=== PATIENT | female | born 1960 | race Caucasian/White ===

== ENCOUNTER 2016-09-03 08:22 | Emergency (ER) | payer BC ==
[2016-09-03 08:34] VITALS: BP 138/98
[2016-09-03] MEDS ORDERED: Tetan/Diph/Pertus SYR(Tdap)* 0.5 ML SYR(BOOSTRIX) use SYR IM ONE (08:41)
[2016-09-03] MEDS ORDERED: Lidocaine 1% MPF* 2 ML VIAL ONE (09:44)
--- NOTE | 2016-09-03 09:50 | RAD ---
INDICATION: Head injury. COMPARISON: There are no prior studies available for comparison. TECHNIQUE: Contiguous axial sections of the brain were obtained from the skull base to the vertex without contrast. FINDINGS: The ventricles, cisterns and sulci are within normal limits. No significant focal abnormality or mass effect is seen. There is no evidence for hemorrhage. No fracture is seen. The visualized portion of the paranasal sinuses and mastoid air cells appear clear. IMPRESSION: NO EVIDENCE FOR ACUTE INTRACRANIAL ABNORMALITY.
--- NOTE | 2016-09-03 10:32 | UC ---
Agustin Cooley Karl, scribed for Shaista Ruiz DO on 09/03/16 at 0847 . Laceration HPI - HPI Summary HPI Summary: Pt is a 56 y/o female that presents to [facility] c/o a laceration to her forehead above her right eye that occurred at approx 22:00 last night. Pt reported that she was chasing her dog down her driveway and slipped and hit her head on the pavement. Pt denied LOC, SALGUERO, nausea, vomiting, changes in visions or hearing, loss of balance, dizziness, fatigue, mood changes, photophobia, and any other health problems. Hx: depression. - History Of Current Complaint Chief Complaint: UCLaceration Stated Complaint: FELL-FOREHEAD LACERATION Time Seen by Provider: 09/03/16 08:35 Hx Obtained From: Patient Laceration Location: Head - above right eye Mechanism Of Injury: Blunt Trauma Onset/Duration: Sudden Onset, Lasting Hours, Still Present Severity: Mild Pain Intensity: 0 - Pain Pain Scale Used: 0-10 Numeric Aggravating Factors: Nothing - Allergies/Home Medications Allergies/Adverse Reactions: Allergies Allergy/AdvReac Type Severity Reaction Status Date / Time No Known Allergies Allergy Verified 09/03/16 08:28 Home Medications: Home Medications Estradiol TAB(NF) 1 tab PO DAILY 09/03/16 [History Confirmed 09/03/16] Progesterone Micronized [Prometrium] 1 cap PO DAILY 09/03/16 [History Confirmed 09/03/16] buPROPion TAB* [Wellbutrin TAB*] 150 mg PO DAILY 09/03/16 [History Confirmed ] PMH/Surg Hx/FS Hx/Imm Hx Previously Healthy: Yes Psychological History Of: Reports: Anxiety, Depression Cancer History Of: Denies: Breast Cancer - Surgical History Surgical History: None - Family History Known Family History: Negative: Cardiac Disease, Hypertension, Diabetes - Social History Occupation: Employed Full-time Alcohol Use: Daily Substance Use Type: None Smoking Status (MU): Current Some Day Smoker Type: Cigarettes Amount Used/How Often: 1 pack/2-3 weeks Cessation Counseling: Patient Advised to Stop Review of Systems Constitutional: Negative Skin: Other - laceration on forehead above right eye Eyes: Negative ENT: Negative Respiratory: Negative Cardiovascular: Negative Gastrointestinal: Negative Genitourinary: Negative Motor: Negative Neurovascular: Negative Musculoskeletal: Negative Neurological: Negative Psychological: Negative All Other Systems Reviewed And Are Negative: Yes Physical Exam Triage Information Reviewed: Yes Appearance: Well-Appearing, No Pain Distress, Well-Nourished Vital Signs: Initial Vital Signs Temp 97.6 F 09/03/16 08:30 Pulse 85 09/03/16 08:30 Resp 16 09/03/16 08:30 BP 138/98 09/03/16 08:30 Pulse Ox 97 09/03/16 08:30 Vital Signs Reviewed: Yes Eyes: Positive: Conjunctiva Clear. Negative: Discharge ENT: Positive: Hearing grossly normal. Negative: Muffled/hoarse voice Neck exam: Normal Neck: Positive: Supple Respiratory: Positive: Lungs clear, Normal breath sounds, No respiratory distress, No accessory muscle use Cardiovascular: Positive: RRR, No Murmur Musculoskeletal Exam: Normal Neurological: Positive: Alert, Muscle Tone Normal Psychological Exam: Normal Psychological: Positive: Age Appropriate Behavior Skin Exam: Other - 3cm laceration to the right forehead/scientology Laceration Repair - Laceration Repair 1 Description: Linear Laceration Size After Repair: Length (cm) - 3 Modified For Repair: No Type Injection: Local Anesthesia Used: 1.0% Lido Cleansing Completed Via Routine Prep: Yes Irrigation With Pressure Irrigation Device: Yes Closure Material: Sutures - 8 nylon Closure Method: Single Layer Suture Of: Skin Suture Type: Nylon Diagnostics - Laboratory Diagnostic Studies Completed/Ordered: CT Brain: (Radiologist) - FINDINGS: The ventricles, cisterns and sulci are within normal limits. No significant focal abnormality or mass effect is seen. There is no evidence for hemorrhage. No fracture is seen. The visualized portion of the paranasal sinuses and mastoid air cells appear clear. IMPRESSION: NO EVIDENCE FOR ACUTE INTRACRANIAL ABNORMALITY. Laceration Course/Dx - Differential Dx - Laceration/Wound Differental Diagnoses: Abrasion, Fracture, Laceration Provider Diagnoses: laceration repair Discharge - Discharge Plan Condition: Stable Disposition: HOME Patient Education Materials: Facial Fracture (ED) Referrals: Kai Rosales MD [Primary Care Provider] - Glenn Reinoso MD [Medical Doctor] - If Needed () Additional Instructions: CEPHALEXIN: The antibiotic you've been prescribed is a member of the cephalosporin class. This type of antibiotic covers a wide variety of infections, including those of the skin, lungs, and urinary tract. It's useful for staph infections. This antibiotic is slightly similar to the penicillin family. In rare cases , a person who is allergic to penicillin will also be allergic to this medication. If you have had a severe allergic reaction to penicillin, and have not taken this antibiotic since that time, notify your doctor. Antibiotics which cover many germs ("broad spectrum" antibiotics) are more likely to cause diarrhea or "yeast" infections. Women prone to vaginal yeast problems may suffer an attack after taking this antibiotic. In infants, oral thrush (white spots "stuck" on the cheek) or yeast diaper rash may result. See your doctor if these problems occur. Call at once if you develop itching, hives , shortness of breath, or lightheadedness. ANY TIME YOU TAKE AN ANTIBIOTIC, IT IS IMPORTANT TO REPLENISH THE BODY'S BALANCE OF "GOOD" BACTERIA BY EATING HIGH QUALITY CULTURED FOOD SUCH YOGURT, SAURKRAUT OR ERIN CHI AND/OR TAKING A PROBIOTIC SUPPLEMENT. FOLLOW UP RETURN HERE FOR SURTURE REMOVAL IN 5 DAYS. Images Head: 1 - 4cm laceration The documentation as recorded by the Agustin pitts Karl accurately reflects the service I personally performed and the decisions made by me, Shaista Ruiz DO.
== END 2016-09-03 11:23 | disposition home or self-care (01) ==
LOC: UCEAST 08:22
DX: S01.81XA Laceration without foreign body of other part of head, initial encounter (principal); W01.198A Fall on same level from slipping, tripping and stumbling with subsequent striking against other object, initial encounter; Y93.K1 Activity, walking an animal; Y92.014 Private driveway to single-family (private) house as the place of occurrence of the external cause; Z23 Encounter for immunization; F17.210 Nicotine dependence, cigarettes, uncomplicated
CPT/HCPCS: 12013; 12031; 36415; 70450; 80074; 86703; 90471; 90715; 99212; G0463

== ENCOUNTER 2016-09-09 10:50 | Emergency (ER) | payer BC ==
[2016-09-09 11:25] VITALS: BP 132/78
--- NOTE | 2016-09-09 11:40 | UC ---
HPI Wound/Suture Re-check - HPI Summary HPI Summary: 56 year old woman here for suture removal. She had 8 simple interrupted sutures placed 6 days ago following a fall. The patient states she was cautious and rested as the doctor advised. She has not had a headache, irritability, nausea, vomiting or trouble sleeping. She did try to return to work on however had some trouble concentrating and went home. She has returned to reading and most of her normal activities now without difficulty - History Of Current Complaint Chief Complaint: UCSkin Stated Complaint: SUTURE REMOVAL Time Seen by Provider: 09/09/16 11:28 Hx Obtained From: Patient Onset/Duration: Sudden Onset, Lasting Days - 6, Still Present - but has improved Severity: Mild Pain Scale Used: 0-10 Numeric - 0 - Allergies/Home Medications Allergies/Adverse Reactions: Allergies Allergy/AdvReac Type Severity Reaction Status Date / Time No Known Allergies Allergy Verified 09/03/16 08:28 PMH/Surg Hx/FS Hx/Imm Hx Previously Healthy: Yes Endocrine History Of: Denies: Diabetes Cardiovascular History Of: Denies: Cardiac Disorders Respiratory History Of: Denies: Asthma Psychological History Of: Reports: Anxiety, Depression Cancer History Of: Denies: Breast Cancer - Surgical History Surgical History: None - Family History Known Family History: Negative: Cardiac Disease, Hypertension, Diabetes - Social History Occupation: Employed Full-time Lives: With Family Alcohol Use: Daily Substance Use Type: None Smoking Status (MU): Current Some Day Smoker Type: Cigarettes Amount Used/How Often: 1 pack/2-3 weeks Cessation Counseling: Patient Advised to Stop Review of Systems Constitutional: Negative Skin: Other - 3 cm well healing laceration to the right forehead. needs 8 stitches removed Eyes: Negative ENT: Negative Respiratory: Negative Cardiovascular: Negative Gastrointestinal: Negative Genitourinary: Negative Motor: Negative Neurovascular: Negative Musculoskeletal: Negative Neurological: Negative Psychological: Negative All Other Systems Reviewed And Are Negative: Yes Physical Exam Triage Information Reviewed: Yes Appearance: Well-Appearing, No Pain Distress, Well-Nourished Vital Signs: Initial Vital Signs Temp 98.1 F 09/09/16 11:16 Pulse 83 09/09/16 11:16 Resp 16 09/09/16 11:16 BP 132/78 09/09/16 11:16 Pulse Ox 99 09/09/16 11:16 Vital Signs Reviewed: Yes Eyes: Positive: Conjunctiva Clear. Negative: Discharge - PERRLA, good ocular movements ENT: Positive: Pharynx normal, Other: - right orbit without step offs or deformities noted Neck: Positive: Supple, Nontender - no midline cervical tenderness Respiratory: Positive: Lungs clear, Normal breath sounds Cardiovascular: Positive: RRR, No Murmur Musculoskeletal: Positive: Strength Intact, ROM Intact Neurological: Positive: Alert, Muscle Tone Normal Psychological: Positive: Age Appropriate Behavior - pleasant and cooperative Skin: Positive: rashes, Other - 3 cm laceration, edges well approximated with 8 simple interrupted sutures intact. No erythema or drainage noted. Faint yellow , resolving bruise, noted distal to laceration Course/Dx - Course Course Of Treatment: area cleansed with alcohol prep. 8 stitches removed. antibiotic ointment applied - Differential Dx - Laceration/Wound Differential Diagnoses: Suture Removal Provider Diagnoses: Well healing laceration to right forehead. 8 stitches removed Discharge - Discharge Plan Condition: Stable Disposition: HOME Patient Education Materials: Stitches Removal (ED) Additional Instructions: You may slowly resume your normal daily activities Continue to apply antibiotic ointment twice daily for 5 more days
== END 2016-09-09 11:52 | disposition home or self-care (01) ==
LOC: UCEAST 10:50
DX: Z48.02 Encounter for removal of sutures (principal); Z72.0 Tobacco use
CPT/HCPCS: 99211; G0463

== ENCOUNTER 2018-08-20 07:00 | Day surgery (SDC) | payer BC ==
[~2018-08-20 07:00] MED LIST: Acetaminophen TAB* 325 MG PO PRN
[2018-08-20] MEDS ORDERED: fentaNYL* 50 MCG/ML 2 ML VIAL (100 MCG VIAL) ONE (08:25)
[2018-08-20] MEDS ORDERED: Midazolam* 1 MG/ML 5 ML VIAL (5 MG) ONE (08:25)
[2018-08-20 09:38] VITALS: BP 125/94
[2018-08-20] MEDS ORDERED: Buffered Lidocaine 0.9% SYRIN* 5 ML/SYR SYRINGE INTRADERM ONE (11:45)
--- NOTE | 2018-08-20 12:01 | OP ---
OPERATIVE NOTE: DATE OF OPERATION: 08/20/18 DATE OF : 60 SURGEON: Favian Chavez M.D. PREOPERATIVE DIAGNOSIS: Cataract, left eye. POSTOPERATIVE DIAGNOSIS: Cataract, left eye. OPERATIVE PROCEDURE: Extracapsular cataract extraction with intraocular lens implant left eye. PROCEDURE: The patient was brought to the operating room after being given 1/2% Alcaine with epineph rine drops in the preoperative area. The eye was prepped and draped in the usual sterile fashion. S terile drape and eyelid speculum were placed. Again, topical 1/2% Alcaine with epinephrine was given . A paracentesis incision was made at the 3 o'clock position with the No.75 blade. Clear cornea inc ision 2.2 x 2.2-mm was created at the 6 o'clock position starting at the anterior limbus using the 2. 2-mm keratome. The anterior chamber was irrigated with 0.4 mL of 1% non-preservative intracameral li docaine and filled with DisCoVisc. A capsulorrhexis was completed using the cystotome and the Utrata forceps. Hydrodissection was performed with balanced salt solution. The lens nucleus was removed wi th the Phacoemulsification handpiece without incident. Cortex was removed with the irrigation-aspira tion handpiece. The capsular bag was re-inflated using DisCoVisc and an SN6AT4 of 14.5 implant was i nserted with the shooter, oriented to the 97-degree meridian. Horizontal reference sweet were made w ith the patient in the seated position in the preoperative area. The irrigation-aspiration handpiece was used to remove all residual DisCoVisc. The eye was refilled with balanced salt solution and the wound checked and found to be watertight. Topical Maxitrol drops were given. [id number]/[facility] #: [id number]
[2018-08-20] MEDS ORDERED: Lidocaine 1%* 5 ML VIAL ONE (12:42)
[2018-08-20] MEDS ORDERED: acetaZOLAMIDE TAB* 250 MG ONE (12:42)
[2018-08-20] MEDS ORDERED: Lidocaine 2% EPI 1:200000 MPF*10-20 ML VIAL ONE (12:42)
[2018-08-20] MEDS ORDERED: Cyclopentolate 1% OPTH.SOL* 2 ML BTL ONE (12:42)
[2018-08-20] MEDS ORDERED: Phenylephrine 2.5% OPTH.SOL* 2 ML BTL ONE (12:42)
[2018-08-20] MEDS ORDERED: Povidone Iodine 5% OPTH* 30 ML BTL ONE (12:42)
[2018-08-20] MEDS ORDERED: Neomycin/Polymy/Dex OPTH.SUSP* MAXITROL 0.1% 5 ML ONE (12:42)
[2018-08-20] MEDS ORDERED: Ketorolac 0.5% OPHTH (NF) 0.5 % 5 ML BTL ONE (12:42)
[2018-08-20] MEDS ORDERED: Proparacaine 0.5% OPHTH.SOL* 15 ML BTL ONE (12:49)
== END 2018-08-20 09:43 | disposition home or self-care (01) ==
LOC: OREAST 07:00
PROVIDERS: ATTEND Specialist
DX: H25.812 Combined forms of age-related cataract, left eye (principal); F41.8 Other specified anxiety disorders
CPT/HCPCS: A9270-GY; J2250; J3010; V2787

== ENCOUNTER 2018-10-08 08:16 | Day surgery (SDC) | payer BC ==
[~2018-10-08 08:16] MED LIST changes: +Buffered Lidocaine 1% SYRIN* 1 ML/SYRINGE INTRADERM ONE
[2018-10-08] MEDS ORDERED: Cyclopentolate 1% OPTH.SOL* 2 ML BTL ONE (09:19)
[2018-10-08] MEDS ORDERED: Lidocaine 1%* 5 ML VIAL ONE (09:19)
[2018-10-08] MEDS ORDERED: Povidone Iodine 5% OPTH* 30 ML BTL ONE (09:19)
[2018-10-08] MEDS ORDERED: Phenylephrine 2.5% OPTH.SOL* 2 ML BTL ONE (09:19)
[2018-10-08] MEDS ORDERED: acetaZOLAMIDE TAB* 250 MG ONE (09:19)
[2018-10-08] MEDS ORDERED: Lidocaine 2% EPI 1:200000 MPF*10-20 ML VIAL ONE (09:19)
[2018-10-08] MEDS ORDERED: Neomycin/Polymy/Dex OPTH.SUSP* MAXITROL 0.1% 5 ML ONE (09:19)
[2018-10-08] MEDS ORDERED: Ketorolac 0.5% OPHTH (NF) 0.5 % 5 ML BTL ONE (09:19)
[2018-10-08] MEDS ORDERED: Proparacaine 0.5% OPHTH.SOL* 15 ML BTL ONE (09:19)
[2018-10-08] MEDS ORDERED: Midazolam* 1 MG/ML 2 ML VIAL (2 MG) ONE ×2 (10:15→10:32)
[2018-10-08 11:01] VITALS: BP 142/88
--- NOTE | 2018-10-08 11:12 | OP ---
DATE OF OPERATION: 10/08/2018. DATE OF : 1960. SURGEON: Favian Chavez M.D. PREOPERATIVE DIAGNOSIS: Cataract right eye. POSTOPERATIVE DIAGNOSIS: Cataract right eye. OPERATIVE PROCEDURE: Extracapsular cataract extraction with intraocular lens implant right eye. PROCEDURE: The patient was brought to the operating room after being given 1/2% Alcaine with epineph rine drops in the preoperative area. The eye was prepped and draped in the usual sterile fashion. S terile drape and eyelid speculum were placed. Again, topical 1/2% Alcaine with epinephrine was given . A paracentesis incision was made at the 9 o'clock position with the No.75 blade. Clear cornea inc ision 2.2 x 2.2-mm was created at the 12 o'clock position starting at the anterior limbus using the 2 .2-mm keratome. The anterior chamber was irrigated with 0.4 mL of 1% non-preservative intracameral l idocaine and filled with DisCoVisc. A capsulorrhexis was completed using the cystotome and the Utrat a forceps. Hydrodissection was performed with balanced salt solution. The lens nucleus was removed w ith the Phacoemulsification handpiece without incident. Cortex was removed with the irrigation-aspir ation handpiece. The capsular bag was re-inflated using DisCoVisc and an SN6AT5 16.5 implant was ins erted with the shooter, oriented to the 96 degree meridian. The horizontal reference sweet were made with the patient in a seated position in the preoperative area. The irrigation-aspiration handpiece was used to remove all residual DisCoVisc. The eye was refilled with balanced salt solution and the wound checked and found to be watertight. Topical Maxitrol drops were given. [id number]/[facility] #: [id number]
== END 2018-10-08 11:11 | disposition home or self-care (01) ==
LOC: OREAST 08:16
PROVIDERS: ATTEND Specialist
DX: H25.811 Combined forms of age-related cataract, right eye (principal); H53.8 Other visual disturbances; Z87.891 Personal history of nicotine dependence; F41.8 Other specified anxiety disorders; I73.00 Raynaud's syndrome without gangrene
CPT/HCPCS: A9270-GY; J2250; V2787

== ENCOUNTER 2019-01-14 12:55 | Emergency (ER) | payer BC ==
[2019-01-14 13:11] VITALS: BP 147/99
--- OUTSIDE RECORDS SUMMARY | 2019-01-14 13:14 | XMS REPORT | Continuity of Care Document ---
:1960 External Reference #:[id number] Author Name HeraclioClinton[facility]ira Care Team Providers Name Role Phone Kai Rosales M.D. Primary Care Physician Unavailable Payers Date Identification Numbers Payment Provider Subscriber Effective: Policy Number: [id number] Tejinder FALCON/BS [place] Felicita Ashford 2014 [place] PayID: [id number] [address] [address] [place] [address] Family History Date Family Member(s) Observation Comments Father due to Multiple Sclerosis () Mother Asthma Mother due to Kidney Disease () Mother Breast Cancer dx age 90 Number of Children 2 First Daughter A&W Second Daughter A&W Paternal Grandfather due to Cancer () Paternal Grandmother due to Cancer () Maternal Grandfather Unknown Maternal Grandmother Schizophrenia Maternal Grandmother due to Old Age () Social History Type Date Description Comments Sex Unknown Marital Status Patient is Living Situation Patient lives alone Diet Diet is healthy and well balanced Sleep Typically sleeps 7 hours a night Pets Household pets include a dog 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 [place] Cigarette Use Currenlty Vaping Alcohol Currently consumes alcohol, drinks 2 glasses of wine a day Tobacco Use Start: Unknown Patient is a current smoker, smokes every day Drug Use Denies drug use Smoking Status Reviewed: 01/08/19 Patient is a current smoker, smokes every day Daily Caffeine Drinks on average 1 cup of coffee a day Exercise Type/Frequency Exercises rarely Current Seat Belt/Car Seat Always uses a seat belt Currently Active The patient is currently sexually active Allergies, Adverse Reactions, Alerts Description No Known Drug Allergies Medications Active Medications SIG Qnty Indications Ordering Provider Date Progesterone Take 1 Capsule 90caps Ellis Ortega, 12/17/2018 Micronized By Mouth Every M.DAna 100mg Capsules Day Maximum Daily Dose Of 1 Per Day Estradiol Take 1 Tablet By 90tabs Ellis Ortega, 06/12/2012 0.5mg Tablets Mouth Every Day M.DAna Multivitamins Unknown Calcium Unknown Biotin Forte Unknown Xanax Unknown History Medications Estradiol 1/2 tab po qd 15tabs Ellis Fuller 05/12/2012 - 1mg Tablets Danish Ortega 06/10/2012 Estradiol Take one pill 90tabs Doris 04/19/2010 - 0.5mg Tablets each day MD Scar 05/12/2012 Prometrium take 1 capsule 90caps Ellis Fuller 03/09/2010 - 100mg Capsules by mouth every Danish Ortega 12/17/2018 day Prometrium 1 PO qd 90caps Delma Lazaro, 07/16/2005 - 100mg Capsules ANP-C 03/01/2009 Prometrium Delma Lazaro, 07/16/2005 - ANP-C 07/16/2005 Estratest H S 1 po X 21 Days 63tabs Delma Lazaro, 05/14/2005 - 0.625mg;1.25 mg Off 7,Repeat ANP-C 03/01/2009 Tablets Lexapro Unknown - 03/01/2009 Medroxyprogesterone Acetate take one pill 90units Estella Brock. - 2.5mg each day Danish Greenfield 03/09/2010 Estradiol Take one pill 90units Estella Brock. - 0.5mg each day Danish Greenfield 03/09/2010 Wellbutrin Unknown - 01/10/2018 Xanax take 1 po prn 10tabs Unknown - 0.25mg Tablets panic attack 01/10/2018 Acyclovir take one tablet Unknown - Tablets by mouth twice 01/10/2018 a day for 5 days at onset Medications Administered in Office Medication SIG Qnty Indications Ordering Provider Date PT SCRN Tbco Id as Non User Ellis Ortega M.D. 01/10/2018 Injection Vital Signs Date Vital Result Comment 01/08/2019 10:30am BP Systolic 138 mmHg BP Diastolic 80 mmHg Height 66 inches 5'6" Weight 134.00 lb BMI (Body Mass Index) 21.6 kg/m2 Last Menstrual Period [id number] 2 Parity 2 12/31/2018 7:48am BP Systolic 130 mmHg BP Diastolic 72 mmHg Height 66 inches 5'6" Weight 134.00 lb BMI (Body Mass Index) 21.6 kg/m2 Last Menstrual Period [id number] 2 Parity 2 01/10/2018 1:31pm BP Systolic 160 mmHg repeat BP 142/98 BP Diastolic 98 mmHg repeat BP 142/98 Height 66 inches 5'6" Weight 137.00 lb BMI (Body Mass Index) 22.1 kg/m2 Last Menstrual Period [id number] 2 Parity 2 11/29/2016 11:13am BP Systolic 138 mmHg BP Diastolic 82 mmHg Height 66 inches 5'6" Weight 134.00 lb BMI (Body Mass Index) 21.6 kg/m2 Last Menstrual Period [id number] 2 Parity 2 11/28/2015 12:11pm BP Systolic 140 mmHg BP Diastolic 92 mmHg Height 66 inches 5'6" Weight 139.00 lb BMI (Body Mass Index) 22.4 kg/m2 12/22/2014 2:40pm BP Systolic 160 mmHg BP Diastolic 100 mmHg Height 66 inches 5'6" Weight 140.00 lb BMI (Body Mass Index) 22.6 kg/m2 11/23/2014 3:10pm BP Systolic 122 mmHg BP Diastolic 76 mmHg Height 66 inches 5'6" Weight 141.00 lb BMI (Body Mass Index) 22.8 kg/m2 Last Menstrual Period [id number] 2 Parity 2 07/08/2013 1:28pm BP Systolic 136 mmHg BP Diastolic 90 mmHg Height 66 inches 5'6" Weight 136.00 lb BMI (Body Mass Index) 21.9 kg/m2 2 Parity 2 06/12/2012 9:04am BP Systolic 118 mmHg BP Diastolic 80 mmHg Height 66 inches 5'6" Weight 135.00 lb BMI (Body Mass Index) 21.8 kg/m2 Last Menstrual Period 0 1995 2 Parity 2 05/15/2011 8:06am BP Systolic 110 mmHg BP Diastolic 74 mmHg Height 66 inches 5'6" Weight 140.00 lb BMI (Body Mass Index) 22.6 kg/m2 2 Parity 2 04/19/2010 10:24am BP Systolic 126 mmHg BP Diastolic 90 mmHg Height 66 inches 5'6" Weight 139.00 lb BMI (Body Mass Index) 22.4 kg/m2 2 Parity 2 12/01/2009 2:38pm BP Systolic 130 mmHg BP Diastolic 82 mmHg Height 66 inches 5'6" Weight 143.00 lb BMI (Body Mass Index) 23.1 kg/m2 2 Parity 2 10/27/2009 9:33am BP Systolic 140 mmHg BP Diastolic 90 mmHg Height 66 inches 5'6" Weight 141.00 lb BMI (Body Mass Index) 22.8 kg/m2 2 Parity 2 03/02/2009 10:29am BP Systolic 130 mmHg BP Diastolic 88 mmHg Height 66 inches 5'6" Weight 149.00 lb BMI (Body Mass Index) 24.0 kg/m2 2 Parity 2 07/16/2005 11:24am BP Systolic 124 mmHg BP Diastolic 90 mmHg Height 66 inches 5'6" Weight 141.00 lb BMI (Body Mass Index) 22.8 kg/m2 Last Menstrual Period 0 Menopausal 2 Parity 2 Results Test Date Facility Test Result H/L Range Note Laboratory test [facility] Cytology SEE RESULT 1 finding [address] [place] [address] BELOW [phone] Laboratory test [facility] Cytology SEE RESULT 2 finding [address] [place] [address] BELOW [phone] GC/Chlamydia Dna [facility] Chlamydia Negative N Negative Probe [address] [place] [address] trachomatis Rna [phone] Neisseria gonorrhoeae (GC) Rna Negative N Negative Laboratory test 11/29/2016 [facility] Trichomonas Negative N Negative [address] [place] [address] Vaginalis Rna [phone] Human Papilloma Virus Rna Negative N Negative 4 Lipid Profile 12/20/2015 [facility] Triglycerides 73 mg/dL N 5 (Trig/Chol/HDL) [place] [address] [phone] Cholesterol 239 mg/dL N 6 HDL Cholesterol 104.3 mg/dL N 7 LDL Cholesterol 120 mg/dL N 8 Laboratory test finding 12/20/2015 [facility] Glucose 88 mg/dL N 70-100 [place] [id number] [phone] TSH (Thyroid Stimulating Horm) 1.72 ?IU/mL N 0.34-5.60 Hemoglobin A1c 5.7 % N Less than 6.0 9 Laboratory test 11/28/2015 [facility] Cytology SEE RESULT BELOW 10 finding [place] [address] [phone] Laboratory test 11/23/2014 [facility] Cytology RUN DATE: finding [place] [address] <SEE NOTE> [phone] Human Papilloma Virus Rna Negative N Negative 12 Pap Plus HPV 07/08/2013 [facility] HPV HR- 13 Lipid And Glucose 06/25/2012 [facility] Glucose 81 mg/dL 70- 100 14 [place] [id number] [phone] Lipid Profile 06/25/2012 [facility] Triglycerides 71 mg/dL 40 -200 (Trig/Chol/HDL) [place] [id number] [phone] Cholesterol 232 mg/dL High Less than 200 15 HDL Cholesterol 105 mg/dL High 40-60 16 Cholesterol/HDL Ratio 2.2 AVERAGE 1-4.44 LDL Cholesterol 112.8 mg/dL High Less Than 100 17 Laboratory test 06/25/2012 [facility] TSH (Thyroid 1.18 0.34- 5.60 18 finding [place] [address] Stimulating MIU/ML [phone] Horm) Laboratory test 06/12/2012 [facility] Cytology RUN DATE: 19 finding [place] [address] 06/13/ [phone] <SEE NOTE> Laboratory test 05/15/2011 [facility] Cytology 20 finding [place] [address] ------ [phone] <SEE NOTE> Laboratory test 05/15/2011 [facility] TSH 0.75 0.34-5.60 finding [place] [address] MIU/ML [phone] Lipid Profile 05/15/2011 [facility] Triglyceride 156 mg/dL 40 -200 (Trig/Chol/HDL) [place] [address] [phone] Cholesterol 225 mg/dL High Less Than 200 21 High Density Lipoprotein 90 mg/dL High 40-60 22 Cholesterol/HDL Ratio 2.50 AVERAGE 1-4.44 Low Density Lipoprotein 104 mg/dL High Less Than 100 23 Laboratory test 04/19/2010 [facility] Cytology [address] [place] [address] <SEE NOTE> [phone] Laboratory test 12/01/2009 [facility] Surgical [address] [place] [address] Pathology <SEE NOTE> [phone] Laboratory test 03/02/2009 [facility] Cytology [address] [place] [address] <SEE NOTE> [phone] 1 SEE RESULT BELOW Name: FELICITA ASHFORD : [address]: Delma Barrera Acct: [id number] Unit: [id number] AGE: 58 Location: [facility] Re12/31/18 SEX: F Status: REG REF SPEC: [id number] ALBINA: 12/31/18-[address]: Delma Barrera REQ: [id number] RECD: 12/31/18-1206 STATUS: SOUT _ ORDERED: TP IMAGE ANALYS, HPV/Thin Prep COMMENTS: [id number] Negative for Intraepithelial lesion or Malignancy Date Time Test Result Flag (u) Normal Range 12/31/18 0801 HPV RNA Negative Negative The high-risk HPV types detected by the assay include: 16, 18, 31, 33, 35, 39, 45, 51, 52, 56, 58, 59, 66, and 68. A. Ectocervical/Endocervical Specimen Adequacy: Satisfactory of evaluation Transformation zone component not identified Patient Information: HPV: High risk HPV RNA testing regardless of pap results. Actual Specimen Date: 12/31/18 LMP If Unknown: 1995 Date of Last Specimen: 11/29/16 Post Menopausal?: Y Signed by and Reported on: FIORELLA Lira(ASCP) [id number] This Pap test was evaluated with the assistance of the ThinPrep Test Imaging System. Due to cytologic findings at the firer portable boiler microscope, comprehensive manual rescreening by a Satellite Communications Operator may be required. The Pap Smear is a screening test designed to aid in the detection of premalignant and malignant conditions of the uterine cervix. It is not a diagnostic procedure and should not be used as the sole means of detecting cervical cancer. Both false- positive and false- negative reports do occur. Depending on your risk status, a Pap smear should be obtained and evaluated every 1-3 years. END OF REPORT DEPARTMENT OF PATHOLOGY, [address] [place] [address] Garrett Zavaleta M.D. Director [facility] # [id number] 2 SEE RESULT BELOW Name: FELICITA ASHFORD : [address]: Samantha Vazquez NP Acct: [id number] Unit: [id number] AGE: 56 Location: [facility] Re11/29/16 SEX: F Status: REG REF SPEC: [id number] ALBINA: 11/29/16-[address]: Samantha Vazquez NP REQ: [id number] RECD: 11/29/16 STATUS: SOUT _ ORDERED: IMAGE ANALYSIS, HPV/Thin Prep COMMENTS: [id number] FINAL DIAGNOSIS Negative for Intraepithelial lesion or Malignancy A. Ectocervical/Endocervical Specimen Adequacy: Satisfactory of evaluation Transformation zone component identified Patient Information: HPV: High risk HPV RNA testing regardless of pap results. Actual Specimen Date: 11/29/16 LMP If Unknown: 1995 Date of Last Specimen: 11/28/15 Date Time Test Result Flag (u) Normal Range 11/29/16 1149 HPV RNA Negative Negative The high-risk HPV types detected by the assay include: 16, 18, 31, 33, 35, 39, 45, 51, 52, 56, 58, 59, 66, and 68. Signed (signature on file) FIORELLA Lira(ASCP) 11/30 1246 This Pap test was evaluated with the assistance of the AvePoint Test Imaging System. Due to cytologic findings at the firer portable boiler microscope, comprehensive manual rescreening by a Satellite Communications Operator may be required. The Pap Smear is a screening test designed to aid in the detection of premalignant and malignant conditions of the uterine cervix. It is not a diagnostic procedure and should not be used as the sole means of detecting cervical cancer. Both false- positive and false- negative reports do occur. Depending on your risk status, a Pap smear should be obtained and evaluated every 1-3 years. END OF REPORT * ML=Testing performed at Main Lab DEPARTMENT OF PATHOLOGY, [address] [place] [address] Garrett Zavaleta M.D. Director [facility] # [id number] GC/Chlamydia Source?: Thin Prep HPV Source?: Thin Prep Trichomonas Source: Thin Prep 4 The high-risk HPV types detected by the assay include: 16, 18, 31, 33, 35, 39, 45, 51, 52, 56, 58, 59, 66, and 68. 5 Desirable <150 Borderline high 150-199 High 200-499 Very High >500 6 Desirable <200 Borderline high 200-239 High >239 7 Low <40 Desirable: 40-60 High: >60 8 Desirable: <100 mg/dL Near Optimal: 100-129 mg/dL Borderline High: 130-159 mg/dL High: 160-189 mg/dL Very High: >189 mg/dL 9 Therapeutic target for the treatment of diabetes Mellitus patients is <7% HBA1C, and in selective patients <6.0%.Please refer to [place] [employer] Diabetic care guidelines for further information. 10 SEE RESULT BELOW Name: FELICITA ASHFORD : [address]: Samantha Vazquez NP Acct: [id number] Unit: [id number] AGE: 55 Location: [facility] Re11/28/15 SEX: F Status: REG REF SPEC: [id number] ALBINA: 11/28/15-[address] [facility] [address]: Samantha Vazquez NP REQ: [id number] RECD: 11/28/15 STATUS: SOUT _ ORDERED: IMAGE ANALYSIS FINAL DIAGNOSIS Negative for Intraepithelial lesion or Malignancy A. Ectocervical/Endocervical Specimen Adequacy: Satisfactory of evaluation Transformation zone component not identified Patient Information: HPV: Thin Layer Pap Test w/reflex to high risk HPV RNA testing when ASCUS Actual Specimen Date: 11/28/15 LMP If Unknown: 1995 Date of Last Specimen: 11/23/14 Signed (signature on file) FIORELLA Lira(ASCP) 11/28 3686 This Pap test was evaluated with the assistance of the Sunrunp Test Imaging System. Due to cytologic findings at the firer portable boiler microscope, comprehensive manual rescreening by a Satellite Communications Operator may be required. The Pap Smear is a screening test designed to aid in the detection of premalignant and malignant conditions of the uterine cervix. It is not a diagnostic procedure and should not be used as the sole means of detecting cervical cancer. Both false- positive and false- negative reports do occur. Depending on your risk status, a Pap smear should be obtained and evaluated every 1-3 years. END OF REPORT * ML=Testing performed at Main Lab DEPARTMENT OF PATHOLOGY, [address] [place] [address] Garrett Zavaleta M.D. Director [facility] # [id number] 11 RUN DATE: 11/25/14 [facility] LAB LIVE PAGE 1 RUN TIME: [address] [place] [address] Specimen Inquiry Name: FELICITA ASHFORD : [address]: Samantha Vazquez NP Acct: [id number] Unit: [id number] AGE: 54 Location: [facility] Re11/23/14 SEX: F Status: REG REF SPEC: [id number] ALBINA: 11/23/14-[address] [facility] [address]: Samantha Vazquez NP REQ: [id number] RECD: 11/24/14 STATUS: SOUT _ ORDERED: IMAGE ANALYSIS, HPV/Thin Prep FINAL DIAGNOSIS Negative for Intraepithelial lesion or Malignancy A. Ectocervical/Endocervical Specimen Adequacy: Satisfactory of evaluation Transformation zone component not identified Patient Information: HPV: High risk HPV RNA testing regardless of pap results. Actual Specimen Date: 11/23/14 LMP If Unknown: 1995 Date of Last Specimen: 07/08/13 Date Time Test Result Flag (u) Normal Range 11/23/14 1608 HPV RNA Negative Negative The high-risk HPV types detected by the assay include: 16, 18, 31, 33, 35, 39, 45, 51, 52, 56, 58, 59, 66, and 68. Signed (signature on file) FIORELLA Marie (ASCP) 11/25 1242 This Pap test was evaluated with the assistance of the AvePoint Test Imaging System. Due to cytologic findings at the firer portable boiler microscope, comprehensive manual rescreening by a Satellite Communications Operator may be required. The Pap Smear is a screening test designed to aid in the detection of premalignant and malignant conditions of the uterine cervix. It is not a diagnostic procedure and should not be used as the sole means of detecting cervical cancer. Both false- positive and false- negative reports do occur. Depending on your risk status, a Pap smear should be obtained and evaluated every 1-3 years. END OF REPORT * ML=Testing performed at Main Lab DEPARTMENT OF PATHOLOGY, [address] [place] [address] Garrett Zavaleta M.D. Director [facility] # [id number] 12 The high-risk HPV types detected by the assay include: 16, 18, 31, 33, 35, 39, 45, 51, 52, 56, 58, 59, 66, and 68. 13 Cytology Laboratory [address] [place] [address], [address] [place] [address] CYTOLOGY REPORT Name: Felicita Ashford : 1960 (Age: 52) Sex: F Location: [facility] GYN [facility] Med. Rec. # [id number] Date Collected: 07/08/2013 Billing #: [id number] Date Received: 07/09/2013 Requisition # [id number] Physician(s): BALTAZAR MCGEE Source of Specimen: ENDOCERVICAL/ECTOCERVICAL THIN PREP Clinical Information: Date of Last Menstrual Period: None Provided Menstrual History: Post menopausal: 1995 Specimen Adequacy: SATISFACTORY FOR EVALUATION. NO ENDOCERVICAL/TRANSFORMATION ZONE. General Categorization: NEGATIVE FOR INTRAEPITHELIAL LESION OR MALIGNANCY. dcl Electronic Signature FIORELLA Carrizales (ASCP) Reported: 07/13/2013 Also seen by :FIORELLA Melgar (ASCP) [facility] HPV High Risk Date Ordered: 07/09/2013 Status: Signed Out Date Reported: 07/13/2013 High Risk NEGATIVE (HPV types 16, 18, 31, 33, 35, 39, 45, 51, 52, 56, 58, 59, 66, 68) Cervista HPV HR Electronic Signature Lennie Edmonds [place] [facility] ICD-9 Code(s) V76.2 14 FASTING 15 Desirable: Less than 200 MG/DL Borderline-High Risk: 200-239 MG/DL High-Risk: 240 MG/DL and over 16 HDL Interpretation: Undesirable: High Risk: Less than 40 MG/DL Desirable: Low Risk: Greater than 60 MG/DL 17 LDL Interpretation: Low Risk Optimal Level: LDL Less than 100 MG/DL Near or Above Optimal: LDL 100-129 MG/DL Borderline High Risk: LDL 130-159 MG/DL High Risk: LDL 160-189 MG/DL Very High Risk: LDL Greater than 189 MG/DL 18 FASTING 19 RUN DATE: 06/13/12 [facility] LAB LIVE PAGE 1 RUN TIME: [address] [place] [address] Specimen Inquiry Name: FELICITA ASHFORD : [address]: Samantha Vazquez NP Acct: [id number] Unit: [id number] AGE: 51 Location: [facility] Re06/12/12 SEX: F Status: REG REF SPEC: [id number] ALBINA: 06/12/12- SUBM DR: Samantha Vazquez NP REQ: [id number] RECD: 06/13/12 STATUS: SOUT _ ORDERED: IMAGE ANALYSIS Negative for Intraepithelial lesion or Malignancy A. Ectocervical/Endocervical Specimen Adequacy: Satisfactory of evaluation Transformation zone component identified Patient Information: HPV: Thin Layer Pap Test w/reflex to high risk HPV DNA testing when ASCUS Actual Specimen Date: 06/12/12 LMP If Unknown: 1995 Date of Last Specimen: 05/15/11 ?: N Post Menopausal?: Y Hysterectomy?: N Previous Abnormal Pap Smears?:N Signed (signature on file) FIORELLA Marie (ASCP) 06/13 2351 This Pap test was evaluated with the assistance of the MaXwarePrep Test Imaging System. Due to cytologic findings at the firer portable boiler microscope, comprehensive manual rescreening by a Satellite Communications Operator may be required. The Pap Smear is a screening test designed to aid in the detection of premalignant and malignant conditions of the uterine cervix. It is not a diagnostic procedure and should not be used as the sole means of detecting cervical cancer. Both false- positive and false- negative reports do occur. Depending on your risk status, a Pap smear shoudl be obtained and evaluated every 1-3 years. END OF REPORT * ML=Testing performed at Main Lab DEPARTMENT OF PATHOLOGY, [address] [place] [address] Garrett Zavaleta M.D. [facility] Permit #[id number] 20 ---- RUN DATE: 05/16/11 [facility] LIVE PAGE 1 RUN TIME: 1136 Specimen Inquiry RUN USER: INTERFACE -- Name: FELICITA ASHFORD Basilio#: [id number] Status: REG REF Re05/15/11 Age/Sex: 50/F Unit#: [id number] Location: [facility] : 60 -- Specimen: [id number] SOUT Spec Date: 05/15/[address]: Samantha Vazquez NP Spec Type: CYTOLOGY Received: 05/15/11-1236 Copies to: SOURCE ECTOCERVICAL/ENDOCERVICAL Thin Prep with Reflex HPV Test PATIENT INFORMATION ACTUAL COLLECTION DATE: 05/15/11 POST MENOPAUSAL? Yes DATE OF PRIOR SPECIMEN: 04/19/10 ADEQUACY OF SPECIMEN Satisfactory for evaluation * Transformation zone component identified * DIAGNOSIS NEGATIVE FOR INTRAEPITHELIAL LESION OR MALIGNANCY * This Pap test was evaluated with the assistance of the MaXwarePrep Pap Test Imaging System. The Pap Smear is a screening test designed to aid in the detection of premalign ant and malignant conditions of the uterine cervix. It is not a diagnostic procedure a nd should not be used as the sole means of detecting cervical cancer. Both false- positiv e and false-negative reports do occur. Depending on your risk status, a Pap smear michael uld be obtained and evaluated every one to three years. Final Interpretation electronically signed by: Tess GAMING(ASC) 05/16/11 113 6 -- -- DEPARTMENT OF PATHOLOGY, [address] [place] [address] [facility] Permit #[id number] Garrett Zavaleta M.D. Director Anna Espinosa M.D. Community Specialist Dir shane -- 21 CHOLESTEROL INTERPRETATION: Desirable: Less than 200 MG/DL Borderline-High Risk: 200-239 MG/DL High-Risk: 240 MG/DL and over 22 HDL INTERPRETATION: Undesirable: High Risk: Less than 40 MG/DL Desirable: Low Risk: Greater than 60 MG/DL 23 LDL INTERPRETATION: Low Risk Optimal Level: LDL Less than 100 MG/DL Near or Above Optimal: LDL 100-129 MG/DL Borderline High Risk: LDL 130-159 MG/DL High Risk: LDL 160-189 MG/DL Very High Risk: LDL Greater than 189 MG/DL 24 ---- RUN DATE: 04/20/10 [facility] NMI LIVE PAGE 1 RUN TIME: 1218 Specimen Inquiry RUN USER: INTERFACE -- Name: FELICITA ASHFORD Status: REG REF Re04/19/10 Age/Sex: 49/F Unit#: [id number] Location: [facility] : 60 -- Specimen: [id number] SOUT Spec Date: 04/19/[address]: Estella noble MD Spec Type: CYTOLOGY Received: 04/20/10-6972 Copies to: SOURCE ECTOCERVICAL/ENDOCERVICAL Thin Prep with Reflex HPV Test PATIENT INFORMATION ACTUAL COLLECTION DATE: 04/19/10 DATE OF PRIOR SPECIMEN: 03/02/09 PATIENT HISTORY: Last menstrual period Unknown ADEQUACY OF SPECIMEN Satisfactory for evaluation * Transformation zone component identified * DIAGNOSIS NEGATIVE FOR INTRAEPITHELIAL LESION OR MALIGNANCY * This Pap test was evaluated with the assistance of the ThinPrep Pap Test Imaging System. The Pap Smear is a screening test designed to aid in the detection of premalign ant and malignant conditions of the uterine cervix. It is not a diagnostic procedure a nd should not be used as the sole means of detecting cervical cancer. Both false- positiv e and false-negative reports do occur. Depending on your risk status, a Pap smear michael uld be obtained and evaluated every one to three years. Initial evaluation performed by Zachariah FRANCIS CT([facility]) 04/20/10 Final Interpretation electronically signed by: Zachariah FRANCIS CT([facility]) 04/20/10 1218 -- -- DEPARTMENT OF PATHOLOGY, [address] [place] [address] [facility] Permit #[id number] Danish Briscoe M.D. Assistant Dir ector -- 25 ---- RUN DATE: 12/06/09 [facility] NMI LIVE PAGE 1 RUN TIME: 1153 Specimen Inquiry RUN USER: INTERFACE -- Name: FELICITA ASHFORD Status: REG REF Re12/01/09 Age/Sex: 49/F Unit#: [id number] Location: [facility] : 60 -- Specimen: [id number] SOUT Spec Date: 12/01/[address]: Estella noble MD Spec Type: SURGICAL P Received: 12/05/09 Copies to: CYTOLOGY SPECIMEN ENDOMETRIAL BIOPSY HISTORY PRE-OP DIAGNOSIS: Post menopausal bleeding GROSS DESCRIPTION Specimen received in formalin labelled Felicita SHELLY [place] and consists of multiple, sampson to brown-red, soft tissue fragments measuring 1.5 x 0.3 x 0.2 cm. in aggregate. Submitted entirely, one cassette. DIAGNOSIS Uterus, endometrium, biopsy: A) Weakly proliferative endometrium with marked glandular and stromal breakdown. B) No evidence of hyperplasia or neoplasia identified. Signed Electronically by: GARRETT ZAVALETA MD 12/06/09 1152 -- -- DEPARTMENT OF PATHOLOGY, [address] [place] [address] [facility] Permit #[id number] Danish Briscoe M.D. Assistant Dir ector -- 26 ---- RUN DATE: 03/03/09 [facility] NMI LIVE PAGE 1 RUN TIME: 1710 Specimen Inquiry RUN USER: INTERFACE -- Name: FELICITA ASHFORD#: [id number] Status: REG REF Re03/02/09 Age/Sex: 48/F Unit#: [id number] Location: [facility]. : 60 -- Specimen: [id number] SOUT Spec Date: 03/02/[address]: Estella noble MD Spec Type: CYTOLOGY Received: 03/03/09-0839 Copies to: SOURCE ECTOCERVICAL/ENDOCERVICAL Thin Prep with Reflex HPV Test PATIENT INFORMATION ACTUAL COLLECTION DATE: 03/02/09 POST MENOPAUSAL? Yes PATIENT HISTORY: Prior Elsewhere ADEQUACY OF SPECIMEN Satisfactory for evaluation * Transformation zone component identified * DIAGNOSIS NEGATIVE FOR INTRAEPITHELIAL LESION OR MALIGNANCY * Reactive cellular changes associated with * Atrophy with inflammation ( atrophic vaginitis ) * This Pap test was evaluated with the assistance of the ThinPrep Pap Test Imaging System. Due to cytologic findings at the firer portable boiler microscope, comprehensive manual rescreening by a Satellite Communications Operator was required. The Pap Smear is a screening test designed to aid in the detection of premalign ant and malignant conditions of the uterine cervix. It is not a diagnostic procedure a nd should not be used as the sole means of detecting cervical cancer. Both false- positiv e and false-negative reports do occur. Depending on your risk status, a Pap smear michael uld be obtained and evaluated every one to three years. Initial evaluation performed by Tess GAMING(ASCP) 03/03/09 Final Interpretation electronically signed by: ANNA ESPINOSA 03/03/09 5589 -- DEPARTMENT OF PATHOLOGY, [address] [place] [address] [facility] Permit #[id number] Garrett Zavaleta M.D. Director Anna Espinosa M.D. Community Specialist Dir shane -- Procedures Date Code Description Status 01/08/2019 09779 Echography Transvaginal Completed 01/01/2019 [id number] Mammogram Completed 09/02/2017 [id number] Colonoscopy Completed 12/22/2014 38750 Echography Transvaginal Completed 12/01/2009 11398 Biopsy Endometrial W/O Cervical Dilation Completed 11/30/2009 70622 Echography Transvaginal Completed Encounters Type Date Location Provider Dx Diagnosis Office Visit 12/31/2018 [facility] SHARMAINE Garcia Z01.419 Encntr for clinical lab assistant exam 8:00a (general) (routine) w/o abn findings N95.0 Postmenopausal bleeding Office Visit 01/10/2018 1:40p [facility] Ellis Fuller Z01.419 Encntr for nataly Ortega M.D. exam (general) (routine) w/o abn findings Office Visit 11/29/2016 11:30a [facility] Samantha Vazquez NP Z01.419 Encntr for clinical lab assistant exam (general) (routine) w/o abn findings Office Visit 11/28/2015 12:30p [facility] Samantha Vazquez NP Z01.419 Encntr for clinical lab assistant exam (general) (routine) w/o abn findings Z12.4 Encounter for screening for malignant neoplasm of cervix N95.0 Postmenopausal bleeding Office Visit 12/22/2014 3:00p [facility] Ellis Fuller 627.1 Postmenopausal Andraber MAnaDAna Bleeding V07.4 HRT Hormone Replacement Therapy Postmenopausal Office Visit 11/23/2014 3:30p [facility] Samantha Vazquez, V72.31 Routine Stagecraft Professor PRODUCT ACCOUNTANT Examination V76.2 Screening Malignant Neoplasm Cervix V07.4 HRT Hormone Replacement Therapy Postmenopausal 627.1 Postmenopausal Bleeding Office Visit 07/08/2013 1:30p [facility] Samantha Vazquez, V72.31 Routine Stagecraft Professor PRODUCT ACCOUNTANT Examination V76.2 Screening Malignant Neoplasm Cervix V07.4 HRT Hormone Replacement Therapy Postmenopausal Office Visit 06/12/2012 9:00a [facility] Samantha Vazquez V72.31 Routine Stagecraft Professor PRODUCT ACCOUNTANT Examination V76.2 Screening Malignant Neoplasm Cervix V07.4 HRT Hormone Replacement Therapy Postmenopausal Office Visit 05/15/2011 8:00a [facility] Samantha Vazquez V72.31 Routine Stagecraft Professor PRODUCT ACCOUNTANT Examination V76.2 Screening Malignant Neoplasm Cervix V07.4 HRT Hormone Replacement Therapy Postmenopausal v82.6 Screening For Multiphasic Conditions Office Visit 04/19/2010 10:20a [facility] Estella Greenfield V72.31 Routine Stagecraft Professor M.D. Examination V76.2 Screening Malignant Neoplasm Cervix 627.2 Menopausal Or Female Climacteric State, Symptomatic V07.4 HRT Hormone Replacement Therapy Postmenopausal Office Visit 11/30/2009 11:00a [facility] Estella Duenas 627.1 Postmenopausal Jean Pierre M.DAna Bleeding 621.9 Uterus Disorders Unspec Office Visit 10/27/2009 9:40a [facility] Estella Greenfield, 626.7 Postcoital M.D. Bleeding 627.1 Postmenopausal Bleeding Office Visit 03/02/2009 10:20a [facility] Estella Greenfield V72.31 Routine Stagecraft Professor M.D. Examination V76.2 Screening Malignant Neoplasm Cervix 627.2 Menopausal Or Female Climacteric State, Symptomatic Office Visit 07/16/2005 11:20a [facility] Delma Lazaro V72.31 Routine Stagecraft Professor ANP-C Examination V72.32 Pap Smear Confirmation V78.0 Screening Iron Deficiency Anemia V76.2 Screening Malignant Neoplasm Cervix Office Visit 07/10/2004 9:30a [facility] lul V72.31 Routine Stagecraft Professor Examination Office Visit 06/11/2003 1:00p [facility] Estella Duenas V72.3 Examination Danish Greenfield Gynecological V78.1 Screening Deficiency Anemia Other & Unspec V77.1 Screening Diabetes Mellitus
--- NOTE | 2019-01-14 13:35 | UC ---
General HPI - HPI Summary HPI Summary: Patient lives alone, was drinking - states she drinks vodka every night not sure how much. When asked if it was more than 6 glasses she was not sure. She lost her balance and fell down entire flight of stairs - hardwood floor. Pain in tailbone, right pelvic area and right thigh. Having a hard time standing or weight bearing. No headache or neck pain. Unsure if she LOC. Had her good friend who is with her currently drive her to the dentist as she broke three or 4 teeth - had one of them pulled. Is all numb from that and had her friend drive her directly here. No CP, SOB or dizziness. Meds: reviewed Drinks every night - unable to quantify amount - History of Current Complaint Chief Complaint: UCLowerExtremity Stated Complaint: INJURIES DO TO A FALL Time Seen by Provider: 01/14/19 13:25 Pain Intensity: 8 - Allergy/Home Medications Allergies/Adverse Reactions: Allergies Allergy/AdvReac Type Severity Reaction Status Date / Time No Known Allergies Allergy Verified 10/08/18 08:36 PMH/Surg Hx/FS Hx/Imm Hx Previously Healthy: Yes - Surgical History Surgical History: Yes Surgery Procedure, Year, and Place: tonsilectomy as a child. wisdom teeth. left cataract extractionwith IOL 08/2018 - Family History Known Family History: Negative: Cardiac Disease, Hypertension, Diabetes - Social History Alcohol Use: Daily Alcohol Amount: 4 per day Substance Use Type: None Smoking Status (MU): Former Smoker Type: Cigarettes Amount Used/How Often: 1 pack per week Have You Smoked in the Last Year: Yes When Did the Patient Quit Smoking/Using Tobacco: 2 months ago Review of Systems All Other Systems Reviewed And Are Negative: Yes Physical Exam Triage Information Reviewed: Yes Appearance: Other: - mildly ill appearing Vital Signs: Initial Vital Signs Temp 98.1 F 01/14/19 12:59 Pulse 87 01/14/19 12:59 Resp 18 01/14/19 12:59 BP 147/99 01/14/19 12:59 Pulse Ox 99 01/14/19 12:59 Eye Exam: Normal ENT: Positive: Other - lost front tooth and broken upper and lower teeth Neck: Positive: Other: - neck brace in place Respiratory: Positive: Lungs clear, Normal breath sounds Cardiovascular: Positive: RRR, No Murmur Musculoskeletal: Positive: Other: - no focal deficits Diagnostics - EKG Cardiac Rate: NL Course/Dx - Course Course Of Treatment: This is a 58 yr old who has a significant alcohol history who fell down the stairs last night Patient needs further work up and likely admission for pain control and safety reasons Discussed she needed imaging for several areas, with her alcohol history they need to make sure she is safe for discharge as she lives alone Patient declined ambulance ride. Her friend is going to drive her directly to the [facility] - Sign out given to HAI Palacio - Diagnoses Provider Diagnosis: Fall, Multiple contusions Discharge - Sign-Out/Discharge Documenting (check all that apply): Patient Departure All imaging exams completed and their final reports reviewed: No Studies - Discharge Plan Condition: Fair Disposition: HOME-RECOMMEND TO ED Referrals: Kai Rosales MD [Primary Care Provider] - Additional Instructions: RECOMMEND GO DIRECTLY TO THE ER FOR FURTHER WORK UP OF YOUR FALL AND EVALUATION FOR ANY FRACTURES AND EVALUATION FOR SYNCOPE - Billing Disposition and Condition Condition: FAIR Disposition: Home-Recommend to ED
== END 2019-01-14 13:40 | disposition home health service (06) ==
LOC: UCEAST 12:55
DX: T14.8XXA Other injury of unspecified body region, initial encounter (principal); W10.9XXA Fall (on) (from) unspecified stairs and steps, initial encounter; Y92.018 Other place in single-family (private) house as the place of occurrence of the external cause; Z87.891 Personal history of nicotine dependence
CPT/HCPCS: 93005; 99212; G0463

== ENCOUNTER 2019-01-14 14:07 | Emergency (ER) | payer BC ==
[2019-01-14] MEDS ORDERED: NS 0.9% 1000 ML** 1,000 ML IV SCH (15:15)
--- NOTE | 2019-01-14 15:15 | ED ---
Adult Trauma - HPI Summary HPI Summary: Pt is a 58 y/o F presenting to the ED with a chief complaint of a fall last night. She was drinking alcohol and does not remember much, but knows she fell down about 13 steps. She is unsure if she lost consciousness. She reports R hip pain, pain in her tailbone, trouble with gait, broken teeth and bruising to her gums. She denies neck pain, and states her Tetanus shot is UTD. - History of Current Complaint Chief Complaint: EDFall Stated Complaint: FALL DOWN STAIRS PER PT Time Seen by Provider: 01/14/19 15:02 Hx Obtained From: Patient Mechanism of Injury: Fall Loss of Consciousness: unsure Onset/Duration: Started Hours Ago, Still Present Onset of Pain: Hours Onset Severity: Moderate Current Severity: Severe Pain Intensity: 8 Pain Scale Used: 0-10 Numeric Location: Back, Abdomen/Pelvis, Other - face Aggravating Factor(s): Movement Alleviating Factor(s): Nothing Associated Signs & Symptoms: Positive: Ecchymosis, Other: - broken teeth - Allergy/Home Medications Allergies/Adverse Reactions: Allergies Allergy/AdvReac Type Severity Reaction Status Date / Time No Known Allergies Allergy Verified 01/14/19 14:25 PMH/Surg Hx/FS Hx/Imm Hx Previously Healthy: Yes Endocrine/Hematology History: Denies: Hx Diabetes Cardiovascular History: Denies: Other Cardiovascular Problems/Disorders Respiratory History: Denies: Hx Asthma Musculoskeletal History: Denies: Hx Rheumatoid Arthritis, Hx Osteoporosis Sensory History: Reports: Hx Cataracts - right, Hx Contacts or Glasses - contact in right eye Denies: Hx Hearing Aid Opthamlomology History: Reports: Hx Cataracts - right, Hx Contacts or Glasses - contact in right eye Psychiatric History: Reports: Hx Anxiety - meds, Hx Depression - meds - Cancer History Hx Chemotherapy: No Hx Radiation Therapy: No - Surgical History Surgery Procedure, Year, and Place: tonsilectomy as a child. wisdom teeth. left cataract extractionwith IOL 08/2018 Hx Anesthesia Reactions: No Infectious Disease History: No Infectious Disease History: Denies: Traveled Outside the [place] in Last 30 Days - Family History Known Family History: Negative: Cardiac Disease, Hypertension, Diabetes - Social History Alcohol Use: Daily Alcohol Amount: 6+, had vodka last night with bourbon Hx Substance Use: No Substance Use Type: Reports: None Hx Tobacco Use: Yes Smoking Status (MU): Former Smoker Type: Cigarettes Amount Used/How Often: 1 pack per week Have You Smoked in the Last Year: Yes Review of Systems Positive: Dental Pain - broken teeth Positive: Myalgia - R hip pain, back pain, Decreased ROM - on walking. Negative : Other - neck pain Positive: Bruising - to the gums All Other Systems Reviewed And Are Negative: Yes Physical Exam - Summary Physical Exam Summary: Appearance: Well appearing, no pain distress Skin: warm, dry, abrasion diffusely over her back Head/face: normal Eyes: EOMI, MARK ENT: normal Neck: supple, non-tender Respiratory: CTA, breath sounds present Cardiovascular: RRR, pulses symmetrical Abdomen: non-tender, soft Musculoskeletal: Tenderness over R hip strength/ROM intact Neuro: normal, sensory motor intact, A&Ox3 Triage Information Reviewed: Yes Vital Signs On Initial Exam: Initial Vitals Temp Pulse Resp BP Pulse Ox 98 F 83 16 145/102 99 01/14/19 14:19 01/14/19 14:19 01/14/19 14:19 01/14/19 14:19 01/14/19 14:19 Vital Signs Reviewed: Yes - Kittrell Coma Scale Best Eye Response: 4 - Spontaneous Best Motor Response: 6 - Obeys Commands Best Verbal Response: 5 - Oriented Coma Scale Total: 15 Diagnostics - Vital Signs Vital Signs Temp Pulse Resp BP Pulse Ox 01/14/19 14:19 98 F 83 16 145/102 99 - Laboratory Result Diagrams: 01/14/19 15:27 01/14/19 15:20 Lab Statement: Any lab studies that have been ordered have been reviewed, and results considered in the medical decision making process. - Radiology CXR Radiology Interpretation Completed By: Radiologist Summary of Radiographic Findings: No active cardiopulmonary disease is noted. ED physician has reviewed this report. Pelvic XR Radiology Interpretation Completed By: Radiologist Summary of Radiographic Findings: Pelvic ring is intact without evidence of fracture. ED physician has reviewed this report. - CT Brain CT CT Interpretation Completed By: Radiologist Summary of CT Findings: No intracranial mass or hemorrhage is noted. ED physician has reviewed this report. C-spine CT CT Interpretation Completed By: Radiologist Summary of CT Findings: Multilevel degenerative disc disease without evidence of fracture. ED physician has reviewed this report. Maxillofacial CT CT Interpretation Completed By: Radiologist Summary of CT Findings: No fracture of the mandible or facial bones is identified. ED physician has reviewed this report. CT chest/abd/pelv CT Interpretation Completed By: Radiologist Summary of CT Findings: CT of the chest is grossly unremarkable with no acute injury. There is a 2.2 x 1.6 cm lobulated mass in the posterior segment of the right lobe of the liver. This may represent a hemangioma although not typical. Correlation with ultrasound may BE helpful. There is a low density mass in the appendix measuring 1.5 x 1.7 cm with peripheral calcification. The possibility of a mucocele that is partially calcified should be considered. No solid organ injury is noted. No bony injury is noted. ED physician has reviewed this report. - EKG 1523 Cardiac Rate: NL - 78bpm EKG Rhythm: Sinus Rhythm ST Segment: Normal Ectopy: None Summary of EKG Findings: EKG at 1523 shows NSR at 78 bpm with no STEMI. Adult Trauma Course/Dx - Course Course Of Treatment: Pt is a 58 y/o F presenting to the ED with a chief complaint of a fall last night while she was drinking. She is unsure about LOC but knows she fell down about 13 steps. She reports R hip pain, pain in her tailbone, trouble with gait, broken teeth and bruising to her gums. She denies neck pain, and states her Tetanus shot is UTD. On physical exam, the pt has abrasions diffusely on her back and mild tenderness over her R hip. EKG at 1523 shows NSR at 78 bpm with no STEMI. Brain CT shows: No intracranial mass or hemorrhage is noted. C-spine CT shows: Multilevel degenerative disc disease without evidence of fracture. Maxillofacial CT shows: No fracture of the mandible or facial bones is identified. CXR shows: No active cardiopulmonary disease is noted. Pelvic XR shows: Pelvic ring is intact without evidence of fracture. CT chest/abd/pelv shows: CT of the chest is grossly unremarkable with no acute injury. There is a 2.2 x 1.6 cm lobulated mass in the posterior segment of the right lobe of the liver. This may represent a hemangioma although not typical. Correlation with ultrasound may BE helpful. There is a low density mass in the appendix measuring 1.5 x 1.7 cm with peripheral calcification. The possibility of a mucocele that is partially calcified should be considered. No solid organ injury is noted. No bony injury is noted. Pt will be d/c'ed with dx including fall, EtOH abuse, multiple contusions, R thigh pain, and mucocele. I offered the pt admission to [facility] but she states she would prefer to go home and f/u with her PCP and Dr. Chong. - Diagnoses Provider Diagnoses: Fall, ETOH abuse, Multiple contusions, Right thigh pain, Appendicular mucocele Discharge - Sign-Out/Discharge Documenting (check all that apply): Patient Departure Patient Received Moderate/Deep Sedation with Procedure: No - Discharge Plan Condition: Stable Disposition: HOME Prescriptions: Ibuprofen TAB* [Motrin TAB* 600 MG] 600 mg PO Q8H PRN #15 tab MDD 3 PRN Reason: Pain Patient Education Materials: Contusion in Adults (ED) Referrals: Kai Rosales MD [Primary Care Provider] - Ned Chong MD [Medical Doctor] - Additional Instructions: Please follow up with Dr. Chong and your primary care provider within the next 3 days. Return to the ED if any of your symptoms get worse over the next 48 hours. - Billing Disposition and Condition Condition: STABLE Disposition: Home - Attestation Statements Document Initiated by Scribe: Yes Documenting Scribe: Neena Aguayo Provider For Whom Sarah is Documenting (Include Credential): Chu Faust MD. Scribe Attestation: Neena Cooley, scribed for Chu Faust MD. on 01/14/19 at 1910. Scribe Documentation Reviewed: Yes Provider Attestation: The documentation as recorded by the bonnieiberrol, Neena Aguayo accurately reflects the service I personally performed and the decisions made by , Chu Faust MD. Status of Scribe Document: Viewed
[2019-01-14 15:34] LABS: ABS Basophils 0.1 10^3/ul (0-0.2); ABS Lymphocytes 1.3 10^3/ul (1.0-4.8); ABS Monocytes 0.8 10^3/ul (0-0.8); ABS Neutrophils 7.8 10^3/ul (1.5-7.7); Eosinophil % 0.2 %; Hematocrit 41 % (35-47); Hemoglobin 13.8 g/dL (12.0-16.0); Lymphocyte % 13.1 %; Mean Corpuscular HGB Conc 34 g/dL (31-36); Mean Corpuscular Hemoglobin 33 pg (27-31); Mean Corpuscular Volume 99 fL (80-97); Mean Platelet Volume 7.1 fL (7.4-10.4); Platelet Count 246 10^3/uL (150-450); Red Blood Count 4.18 10^6 /uL (3.70-4.87); Red Cell Distribution Width 13 % (10.5-15); White Blood Count 9.9 10^3/uL (3.5-10.8)
[2019-01-14 15:40] LABS: INR 0.98 (0.82-1.09)
[2019-01-14 15:53] LABS: Albumin 4.3 g/dL (3.2-5.2); Albumin/Globulin Ratio 1.5 (1-3); BUN/Creatinine Ratio 13.4 (8-20); Calcium 9.4 mg/dL (8.6-10.3); EGFR African American 109.4 (>60); EGFR Non-African American 90.4 (>60); Globulin 2.9 g/dL (2-4); Potassium 3.8 mmol/L (3.5-5.0); Total Bilirubin 0.5 mg/dL (0.2-1.0); Total Protein 7.2 g/dL (6.4-8.9)
[2019-01-14] MEDS ORDERED: Iohexol 300* (CONTRAST) 10 ML SDV IV ONE (16:01)
[2019-01-14] MEDS ORDERED: Ibuprofen TAB* 600 MG PO ONE (18:27)
[2019-01-14 19:20] VITALS: BP 142/76
== END 2019-01-14 19:20 | disposition home or self-care (01) ==
LOC: ED 14:07
DX: F10.10 Alcohol abuse, uncomplicated (principal); T14.8XXA Other injury of unspecified body region, initial encounter; W10.9XXA Fall (on) (from) unspecified stairs and steps, initial encounter; M25.551 Pain in right hip; K38.8 Other specified diseases of appendix; R16.0 Hepatomegaly, not elsewhere classified; M50.30 Other cervical disc degeneration, unspecified cervical region; F41.9 Anxiety disorder, unspecified; F32.9 Major depressive disorder, single episode, unspecified; Z87.891 Personal history of nicotine dependence
CPT/HCPCS: 36415; 70450; 70486; 71045; 71260; 72125; 72170; 74177; 80053; 80320; 82550; 83605; 83690; 84484; 85025; 85610; 93005; 96360; 96361; 99284; A9270-GY; G0480; Q9967

== ENCOUNTER 2022-10-15 10:45 | Inpatient (IN) ==
[2022-10-15] MEDS ORDERED: Midazolam 2 mg/2 ml VIAL 1 mg/ml 2 ml VIAL (2 mg) IM ONE (11:26)
[2022-10-15 12:26] LABS: ABS Eosinophils 0.1 10^3/ul (0-0.6); ABS Lymphocytes 1.9 10^3/ul (1.0-4.8); ABS Monocytes 0.4 10^3/ul (0-0.8); ABS Neutrophils 1.4 10^3/ul (1.5-7.7); Eosinophil % 1.7 %; Hematocrit 45 % (35-47); Hemoglobin 15.1 g/dL (12.0-16.0); Lymphocyte % 49.9 %; Mean Corpuscular HGB Conc 34 g/dL (31-36); Mean Corpuscular Hemoglobin 33 pg (27-31); Mean Corpuscular Volume 98 fL (80-97); Mean Platelet Volume 7.1 fL (7.4-10.4); Nucleated Red Blood Cells % 0.1; Platelet Count 279 10^3/uL (150-450); Red Cell Distribution Width 14 % (10-15); White Blood Count 3.9 10^3/uL (3.5-10.8)
[2022-10-15 12:29] LABS: Urine Appearance Clear; Urine Bilirubin Negative (Negative); Urine Blood Negative (Negative); Urine Color Straw; Urine Glucose Negative (Negative); Urine Ketones Negative (Negative); Urine Nitrite Negative (Negative); Urine Protein Negative (Negative); Urine Specific Gravity 1.005 (1.002-1.030); Urine Urobilinogen Negative (Negative)
[2022-10-15 12:44] LABS: Urine Benzodiazepine Screen None Detected (None Detect); Urine Cannabinoids Screen None Detected (None Detect); Urine Opiates Screen None Detected (None Detect)
[2022-10-15 13:08] LABS: ALT 16 U/L (7-52); AST 24 U/L (13-39); Albumin 4.4 g/dL (3.2-5.2); Albumin/Globulin Ratio 1.6 (1-3); Alcohol, S 327 mg/dL (<13); Alkaline Phosphatase 79 U/L (35-149); Anion Gap 7 mmol/L (2-11); Blood Urea Nitrogen 8 mg/dL (6-24); CO2 Carbon Dioxide 29 mmol/L (22-32); Chloride 106 mmol/L (101-111); Creatinine, Serum 0.66 mg/dL (0.51-0.95); Globulin 2.7 g/dL (2-4); Glucose 95 mg/dL (70-100); Salicylate < 2.50 mg/dL (<30); Sodium 142 mmol/L (135-145); Total Protein 7.1 g/dL (6.4-8.9); eGFR CKD-EPI 99.1 (>60)
[2022-10-15 13:16] LABS: Acetaminophen < 15 mcg/mL
[2022-10-15 13:21] LABS: TSH Ultra Thyroid Stim Horm 0.43 mcIU/mL (0.34-5.60)
[2022-10-15] MEDS ORDERED: Midazolam 2 mg/2 ml VIAL 1 mg/ml 2 ml VIAL (2 mg) IV SLOW PU ONE (13:44)
[2022-10-15] MEDS ORDERED: Haloperidol 5 mg/ml SDV IV/IM 5 MG/ML AMP IV SLOW PU ONE (14:07)
[2022-10-15] MEDS ORDERED: diazePAM INJ CARPUJECT 5 MG/ML SYRINGE ONE (20:35)
[2022-10-15] MEDS ORDERED: diazePAM INJ CARPUJECT 5 MG/ML SYRINGE IV ONE (20:35)
[2022-10-16] MEDS ORDERED: Thiamine 100 MG/ML 2 ml VIAL (200 mg) IM ONE (11:58)
[2022-10-16] MEDS ORDERED: LORazepam 2 mg VIAL 1 ml IV PUSH SCH ×2 (12:00)
[2022-10-16] MEDS ORDERED: Lorazepam PYXIS KEY PRN (12:07)
[2022-10-16] MEDS: Multivitamins/Minerals TAB PO SCH (13:17)
[2022-10-16] MEDS ORDERED: Thiamine 100 MG/ML 2 ml VIAL 100 MG, Folic Acid IV 1 MG, Multiple Vitamin IV ADULT 10 M... IV ONE (14:34)
[2022-10-16 15:46] LABS: Magnesium 2.1 mg/dL (1.9-2.7); Phosphorus 4.6 mg/dL (2.5-5.0)
[2022-10-16 16:20] LABS: Vitamin B12 267 pg/mL (180-914)
[2022-10-16 16:45] LABS: Folate 6.77 ng/mL (5.90-24.80)
[2022-10-16] MEDS: Enoxaparin 40 MG/0.4 ML SYR SUBCUT SCH (17:04)
[2022-10-17 06:23] LABS: ABS Eosinophils 0.1 10^3/ul (0-0.6); ABS Lymphocytes 1.4 10^3/ul (1.0-4.8); ABS Monocytes 0.6 10^3/ul (0-0.8); ABS Neutrophils 1.8 10^3/ul (1.5-7.7); Eosinophil % 2.9 %; Hematocrit 42 % (35-47); Hemoglobin 14.1 g/dL (12.0-16.0); Lymphocyte % 34.5 %; Mean Corpuscular HGB Conc 33 g/dL (31-36); Mean Corpuscular Hemoglobin 33 pg (27-31); Mean Corpuscular Volume 98 fL (80-97); Mean Platelet Volume 7.6 fL (7.4-10.4); Nucleated Red Blood Cells % 0.1; Platelet Count 237 10^3/uL (150-450); Red Cell Distribution Width 13 % (10-15)
[2022-10-17 06:39] LABS: Calcium 9.3 mg/dL (8.6-10.3); Creatinine, Serum 0.72 mg/dL (0.51-0.95); Magnesium 1.8 mg/dL (1.9-2.7); Phosphorus 3.8 mg/dL (2.5-5.0); Potassium 3.8 mmol/L (3.5-5.0); eGFR CKD-EPI 94.5 (>60)
[2022-10-17] MEDS: Calcium Carb (TUMS) 500 mg CHEW TAB PO SCH (09:53)
[2022-10-17] MEDS: Multivitamins/Minerals TAB PO SCH (09:54)
[2022-10-17] MEDS: Enoxaparin 40 MG/0.4 ML SYR SUBCUT SCH (15:14)
[2022-10-18] MEDS: Calcium Carb (TUMS) 500 mg CHEW TAB PO SCH (08:44)
[2022-10-18] MEDS: Multivitamins/Minerals TAB PO SCH (08:44)
[2022-10-18] MEDS ORDERED: Lorazepam PYXIS KEY PRN ×3 (14:13→15:31)
[2022-10-18] MEDS: LORazepam 2 mg VIAL 1 ml IM PRN (14:42)
[2022-10-18] MEDS ORDERED: LORazepam 2 mg VIAL 1 ml IM ONE ×2 (14:49→15:31)
[2022-10-18] MEDS ORDERED: LORazepam 2 mg VIAL 1 ml ONE (15:31)
[2022-10-18] MEDS ORDERED: Lorazepam PYXIS KEY ONE (15:31)
[2022-10-18] MEDS: Enoxaparin 40 MG/0.4 ML SYR SUBCUT SCH (16:34)
[2022-10-18] MEDS ORDERED: Haloperidol 5 mg/ml SDV IV/IM 5 MG/ML AMP IM ONE (16:37)
[2022-10-19] MEDS: Calcium Carb (TUMS) 500 mg CHEW TAB PO SCH (09:27)
[2022-10-19] MEDS: Multivitamins/Minerals TAB PO SCH (09:27)
[2022-10-19] MEDS: Enoxaparin 40 MG/0.4 ML SYR SUBCUT SCH (14:39)
[2022-10-20] MEDS: Calcium Carb (TUMS) 500 mg CHEW TAB PO SCH (08:29)
[2022-10-20] MEDS: Multivitamins/Minerals TAB PO SCH (08:29)
[2022-10-20] MEDS: LORazepam 2 mg VIAL 1 ml IM PRN ×2 (09:39→11:08)
[2022-10-20] MEDS: Enoxaparin 40 MG/0.4 ML SYR SUBCUT SCH (17:48)
[2022-10-21] MEDS: Calcium Carb (TUMS) 500 mg CHEW TAB PO SCH (09:07)
[2022-10-21] MEDS: Multivitamins/Minerals TAB PO SCH (09:08)
[2022-10-21] MEDS: Enoxaparin 40 MG/0.4 ML SYR SUBCUT SCH (14:58)
[2022-10-21] MEDS: Thiamine 100 MG/ML 2 ml VIAL (200 mg) IM SCH ×2 (16:13→21:14)
[2022-10-22] MEDS: Thiamine 100 MG/ML 2 ml VIAL (200 mg) IM SCH ×3 (09:14→20:34)
[2022-10-22] MEDS: Multivitamins/Minerals TAB PO SCH (09:18)
[2022-10-22] MEDS: Calcium Carb (TUMS) 500 mg CHEW TAB PO SCH (09:20)
[2022-10-22] MEDS: Enoxaparin 40 MG/0.4 ML SYR SUBCUT SCH (14:58)
[2022-10-23] MEDS: Calcium Carb (TUMS) 500 mg CHEW TAB PO SCH (09:13)
[2022-10-23] MEDS: Multivitamins/Minerals TAB PO SCH (09:14)
[2022-10-23] MEDS: Thiamine 100 MG/ML 2 ml VIAL (200 mg) IM SCH ×3 (09:14→21:54)
[2022-10-23] MEDS: Enoxaparin 40 MG/0.4 ML SYR SUBCUT SCH (14:45)
[2022-10-24] MEDS: Calcium Carb (TUMS) 500 mg CHEW TAB PO SCH (08:49)
[2022-10-24] MEDS: Multivitamins/Minerals TAB PO SCH (08:50)
[2022-10-24] MEDS: Polyethylene Glycol 3350 17 GM PACKET PO SCH (08:52)
[2022-10-24] MEDS: Thiamine 100 MG/ML 2 ml VIAL (200 mg) IM SCH ×3 (10:13→21:49)
[2022-10-24] MEDS: Enoxaparin 40 MG/0.4 ML SYR SUBCUT SCH (16:57)
[2022-10-24] MEDS: Senna TAB 8.6 mg TAB PO SCH (21:51)
[2022-10-25 06:34] LABS: Hematocrit 40 % (35-47); Mean Platelet Volume 7.5 fL (7.4-10.4); Platelet Count 228 10^3/uL (150-450)
[2022-10-25 07:36] LABS: Creatinine, Serum 0.72 mg/dL (0.51-0.95); eGFR CKD-EPI 94.5 (>60)
[2022-10-25] MEDS: Polyethylene Glycol 3350 17 GM PACKET PO SCH (10:19)
[2022-10-25] MEDS: Calcium Carb (TUMS) 500 mg CHEW TAB PO SCH (10:20)
[2022-10-25] MEDS: Multivitamins/Minerals TAB PO SCH (10:20)
[2022-10-25] MEDS: Thiamine 100 MG/ML 2 ml VIAL (200 mg) IM SCH ×3 (10:21→22:01)
[2022-10-25] MEDS: Enoxaparin 40 MG/0.4 ML SYR SUBCUT SCH (14:45)
[2022-10-25] MEDS: Senna TAB 8.6 mg TAB PO SCH (20:42)
[2022-10-26] MEDS: Calcium Carb (TUMS) 500 mg CHEW TAB PO SCH (10:10)
[2022-10-26] MEDS: Polyethylene Glycol 3350 17 GM PACKET PO SCH (10:10)
[2022-10-26] MEDS: Thiamine 100 MG/ML 2 ml VIAL (200 mg) IM SCH ×3 (10:11→22:37)
[2022-10-26] MEDS: Multivitamins/Minerals TAB PO SCH (10:12)
[2022-10-26] MEDS: Enoxaparin 40 MG/0.4 ML SYR SUBCUT SCH (15:58)
[2022-10-26] MEDS: Senna TAB 8.6 mg TAB PO SCH (22:36)
[2022-10-27] MEDS: Calcium Carb (TUMS) 500 mg CHEW TAB PO SCH (09:03)
[2022-10-27] MEDS: Polyethylene Glycol 3350 17 GM PACKET PO SCH (09:03)
[2022-10-27] MEDS: Thiamine 100 MG/ML 2 ml VIAL (200 mg) IM SCH (09:06)
[2022-10-27] MEDS: Multivitamins/Minerals TAB PO SCH (09:15)
[2022-10-27] MEDS: Enoxaparin 40 MG/0.4 ML SYR SUBCUT SCH (17:02)
[2022-10-27] MEDS: Senna TAB 8.6 mg TAB PO SCH (20:03)
[2022-10-28] MEDS: Multivitamins/Minerals TAB PO SCH (10:58)
[2022-10-28] MEDS: Calcium Carb (TUMS) 500 mg CHEW TAB PO SCH (10:59)
[2022-10-28] MEDS: buPROPion SR 100 mg TAB.SR PO SCH (10:59)
[2022-10-28] MEDS: Polyethylene Glycol 3350 17 GM PACKET PO SCH (11:00)
[2022-10-28] MEDS: Senna TAB 8.6 mg TAB PO SCH (21:08)
[2022-10-29] MEDS: Calcium Carb (TUMS) 500 mg CHEW TAB PO SCH (08:34)
[2022-10-29] MEDS: buPROPion SR 100 mg TAB.SR PO SCH (08:34)
[2022-10-29] MEDS: Multivitamins/Minerals TAB PO SCH (08:37)
[2022-10-29] MEDS: Polyethylene Glycol 3350 17 GM PACKET PO SCH (08:37)
[2022-10-29] MEDS: Senna TAB 8.6 mg TAB PO SCH (20:21)
[2022-10-30] MEDS: Calcium Carb (TUMS) 500 mg CHEW TAB PO SCH (10:09)
[2022-10-30] MEDS: Polyethylene Glycol 3350 17 GM PACKET PO SCH (10:09)
[2022-10-30] MEDS: Multivitamins/Minerals TAB PO SCH (10:10)
[2022-10-30] MEDS: buPROPion SR 100 mg TAB.SR PO SCH (10:11)
[2022-10-30] MEDS: Senna TAB 8.6 mg TAB PO SCH (20:41)
[2022-10-31] MEDS: Polyethylene Glycol 3350 17 GM PACKET PO SCH (09:02)
[2022-10-31] MEDS: Multivitamins/Minerals TAB PO SCH (09:02)
[2022-10-31] MEDS: buPROPion SR 100 mg TAB.SR PO SCH (09:04)
[2022-10-31] MEDS: Calcium Carb (TUMS) 500 mg CHEW TAB PO SCH (09:04)
[2022-10-31] MEDS: Senna TAB 8.6 mg TAB PO SCH (20:23)
[2022-11-01] MEDS: Polyethylene Glycol 3350 17 GM PACKET PO SCH (08:59)
[2022-11-01] MEDS: Multivitamins/Minerals TAB PO SCH (09:00)
[2022-11-01] MEDS: Calcium Carb (TUMS) 500 mg CHEW TAB PO SCH (09:01)
[2022-11-01] MEDS: buPROPion SR 100 mg TAB.SR PO SCH (09:02)
[2022-11-01] MEDS: Senna TAB 8.6 mg TAB PO SCH (20:11)
[2022-11-02] MEDS: Calcium Carb (TUMS) 500 mg CHEW TAB PO SCH (09:04)
[2022-11-02] MEDS: Multivitamins/Minerals TAB PO SCH (09:04)
[2022-11-02] MEDS: buPROPion SR 100 mg TAB.SR PO SCH (09:04)
[2022-11-02] MEDS: Polyethylene Glycol 3350 17 GM PACKET PO SCH (09:05)
[2022-11-02] MEDS: Senna TAB 8.6 mg TAB PO SCH (20:06)
[2022-11-03] MEDS: Polyethylene Glycol 3350 17 GM PACKET PO SCH (08:41)
[2022-11-03] MEDS: buPROPion SR 100 mg TAB.SR PO SCH (08:42)
[2022-11-03] MEDS: Multivitamins/Minerals TAB PO SCH (08:45)
[2022-11-03] MEDS: Calcium Carb (TUMS) 500 mg CHEW TAB PO SCH (08:45)
[2022-11-03] MEDS: Senna TAB 8.6 mg TAB PO SCH (20:03)
[2022-11-04] MEDS: Polyethylene Glycol 3350 17 GM PACKET PO SCH (10:06)
[2022-11-04] MEDS: Calcium Carb (TUMS) 500 mg CHEW TAB PO SCH (10:06)
[2022-11-04] MEDS: Magnesium Hydroxide LIQ 30 ML UDC PO SCH ×2 (10:06→21:06)
[2022-11-04] MEDS: buPROPion SR 100 mg TAB.SR PO SCH (10:06)
[2022-11-04] MEDS: Multivitamins/Minerals TAB PO SCH (10:06)
[2022-11-04] MEDS: Senna TAB 8.6 mg TAB PO SCH (21:06)
[2022-11-05] MEDS: buPROPion SR 100 mg TAB.SR PO SCH (08:41)
[2022-11-05] MEDS: Calcium Carb (TUMS) 500 mg CHEW TAB PO SCH (08:44)
[2022-11-05] MEDS: Multivitamins/Minerals TAB PO SCH (08:48)
[2022-11-05] MEDS: Magnesium Hydroxide LIQ 30 ML UDC PO SCH ×2 (10:13→20:08)
[2022-11-05] MEDS: Polyethylene Glycol 3350 17 GM PACKET PO SCH (10:13)
[2022-11-05] MEDS: Senna TAB 8.6 mg TAB PO SCH (20:04)
[2022-11-06] MEDS: Magnesium Hydroxide LIQ 30 ML UDC PO SCH ×2 (09:29→20:04)
[2022-11-06] MEDS: buPROPion SR 100 mg TAB.SR PO SCH (09:29)
[2022-11-06] MEDS: Polyethylene Glycol 3350 17 GM PACKET PO SCH (09:29)
[2022-11-06] MEDS: Multivitamins/Minerals TAB PO SCH (09:29)
[2022-11-06] MEDS: Calcium Carb (TUMS) 500 mg CHEW TAB PO SCH (09:29)
[2022-11-06] MEDS: Senna TAB 8.6 mg TAB PO SCH (20:04)
[2022-11-07 04:34] LABS: Rapid COVID-19 Molecular Undetected (Undetected)
[2022-11-07] MEDS: Multivitamins/Minerals TAB PO SCH (07:49)
[2022-11-07] MEDS: Calcium Carb (TUMS) 500 mg CHEW TAB PO SCH (07:50)
[2022-11-07] MEDS: buPROPion SR 100 mg TAB.SR PO SCH (07:50)
[2022-11-07] MEDS: Polyethylene Glycol 3350 17 GM PACKET PO SCH (07:52)
[2022-11-07] MEDS: Magnesium Hydroxide LIQ 30 ML UDC PO SCH (07:52)
[2022-11-07 10:26] VITALS: BP 100/81
== END 2022-11-07 11:13 | DRG 421 ==
LOC: ED 10:45 → EDHOLD 10:45 → SUATTDRO 10-16 13:35 → EDHOLD 10-16 14:44 → MEDTELE 10-16 15:29 → SUATTDRO 10-18 16:27 → MEDTELE 10-30 18:30
PROVIDERS: ADMIT Hospitalist; ATTEND Student in an Organized Health Care Education/Training Program